=== PATIENT | male | born 2000 | race African-American/Black ===

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

== ENCOUNTER 2018-05-25 16:38 | Emergency (ER) | payer MEDICAID ==
[~2018-05-25] VITALS: Ht 170.2 cm; Wt 59.0 kg
[2018-05-25] MEDS ORDERED: LORazepam 1MG TABLET ONE (17:04)
[2018-05-25] MEDS ORDERED: LORazepam 1MG TABLET PO ONE (18:00)
[2018-05-25 18:02] VITALS: BP 125/85
== END 2018-05-25 18:23 | disposition home or self-care (01) ==
LOC: ED 16:57
DX: F41.1 Generalized anxiety disorder (principal)
CPT/HCPCS: 99284

== ENCOUNTER 2018-05-26 00:40 | Emergency (ER) | payer MEDICAID ==
[~2018-05-26] VITALS: Ht 170.2 cm; Wt 59.0 kg
[2018-05-26 00:43] VITALS: BP 132/92
[2018-05-26] MEDS ORDERED: LORazepam 1MG TABLET ONE (01:17)
[2018-05-26] MEDS ORDERED: LORazepam 1MG TABLET PO ONE (01:30)
== END 2018-05-26 01:32 | disposition home or self-care (01) ==
LOC: ED 01:29
DX: F41.1 Generalized anxiety disorder (principal); F17.210 Nicotine dependence, cigarettes, uncomplicated
CPT/HCPCS: 99284

== ENCOUNTER 2018-07-15 01:34 | Emergency (ER) | payer MEDICAID ==
[~2018-07-15] VITALS: Ht 170.2 cm; Wt 58.8 kg
[2018-07-15 01:39] VITALS: BP 126/85
== END 2018-07-15 04:48 | disposition home or self-care (01) ==
LOC: ED 01:37
DX: K01.1 Impacted teeth (principal); K08.89 Other specified disorders of teeth and supporting structures; F17.200 Nicotine dependence, unspecified, uncomplicated
CPT/HCPCS: 99283